=== PATIENT | male | born 1955 | race Caucasian/White ===

== ENCOUNTER 2018-05-27 05:22 | Day surgery (SDC) | payer BC ==
[2018-05-27] MEDS ORDERED: PROPOFOL 200 MG/20 ML VIAL IV ONE (07:00)
[2018-05-27] MEDS ORDERED: LACTATED RINGERS 1,000 ML ONE (07:58)
--- NOTE | 2018-05-27 13:41 | OP ---
DATE OF PROCEDURE: 05/27/18 PREPROCEDURE DIAGNOSIS: 1. Colorectal cancer screening. Last colonoscopy over 10 years ago. POSTPROCEDURE DIAGNOSIS: 1. Diverticulosis. 2. Internal hemorrhoids. PROCEDURE: 1. Colonoscopy. SURGEON: Sen Rey MD COMPLICATIONS: No immediate complications. SEDATION: The patient was sedated via IV propofol by the Anesthesia Department. CONSENT: Prior to the procedure, risks, benefits and alternatives to the therapy were discussed with the patient. The risks included bleeding, infection, perforation and . The patient agreed to the procedure and signed a consent. PREPROCEDURE ANESTHESIA ASSESSMENT: An examination revealed no contraindication to sedation. Airway examination demonstrated a Mallampati class type 2, ASA grade assessment type 2. Throughout the procedure, the patient's vital signs were closely monitored. PROCEDURE: The patient was placed in the left lateral decubitus position and a rectal examination was performed. The rectal examination was normal. The Olympus colonoscope was passed in the anus all the way into the cecum. The scope was retracted and the mucosa was visualized. The entirety of the exam was performed under direct visualization. Retroflexion was performed in the rectum. Preparation quality was excellent. The withdrawal time was greater than 6 minutes. The patient tolerated the procedure well. FINDINGS: 1. Moderate amount of diverticular openings were found scattered throughout the sigmoid, rectosigmoid and descending colon. 2. Non-bleeding, medium sized internal hemorrhoids were found in retroflexion. 2. The remainder of the examination was entirely normal. RECOMMENDATION: 1. Return the patient home. 2. Resume previous diet favoring high-fiber foods. 3. Repeat colonoscopy in the next 10 years. 4. Primary care physician may check FIT/Cologuard in the next 3 to 5 years. 5. Return to referring physicians office as previously scheduled. 6. Return to my office p.r.n. 7. Findings were discussed with the patient and family members. #[id number] [facility]
[2018-05-27 14:38] VITALS: BP 136/92; TEMP 97; O2SAT 97
== END 2018-05-27 14:15 | disposition home or self-care (01) ==
LOC: AMB 05:22 → EDBD 20:15
PROVIDERS: ATTEND Internal Medicine Gastroenterology
DX: Z12.11 Encounter for screening for malignant neoplasm of colon (principal); K57.30 Diverticulosis of large intestine without perforation or abscess without bleeding; K64.8 Other hemorrhoids; I10 Essential (primary) hypertension; E66.9 Obesity, unspecified; Z86.010 Personal history of colon polyps; Z68.31 Body mass index [BMI] 31.0-31.9, adult; Z79.899 Other long term (current) drug therapy
CPT/HCPCS: 00812; 45378; J3490; J7120